=== PATIENT | male | born 1990 | race African-American/Black ===

== ENCOUNTER 2021-08-20 17:19 | Emergency (ER) | payer OTHER ==
[~2021-08-20] VITALS: Ht 195.6 cm; Wt 104.5 kg
[2021-08-20 17:24] VITALS: TEMP 99
[2021-08-20] MEDS ORDERED: AMOXICILLIN 8751 TAB PO (18:44)
[2021-08-20] MEDS ORDERED: NORCO 325 MG-51 TAB PO (18:44)
[2021-08-20 19:13] VITALS: BP 125/85; PULSE 95
== END 2021-08-20 19:14 | disposition home or self-care (01) ==
LOC: COL.ER 17:19
DX: S68.120A Partial traumatic metacarpophalangeal amputation of right index finger, initial encounter (principal); S60.942A Unspecified superficial injury of right middle finger, initial encounter; F17.290 Nicotine dependence, other tobacco product, uncomplicated; Z28.310 Unvaccinated for COVID-19; W28.XXXA Contact with powered lawn mower, initial encounter; Y92.59 Other trade areas as the place of occurrence of the external cause; Y99.0 Civilian activity done for income or pay
CPT/HCPCS: J0690